=== PATIENT | male | born 1985 | race Caucasian/White ===

== ENCOUNTER 2016-07-21 17:23 | Emergency (ER) | payer OTHER ==
[2016-07-21] MEDS ORDERED: LIDOCAINE HCL 2% 20 ML VIAL ONE (18:03)
--- NOTE | 2016-07-21 18:37 | ER NURSING DOCUMENTATION ---
Nurse's Notes Name:Santino Gil Age:30 yrs Sex:Male :1985 Arrival Date:07/21/2016 Time:17:23 Bed1 Private MD:Anjelica Tellez Diagnosis:Lip Laceration Presentation: 07/21 17:33 Presenting complaint: Patient states: laceration above lip 30 minutes ago. Transition cb of care: Home. Complicating Factors: There are no complicating factors for this patient. Notified ED Physician of patient's arrival and CC Matthew Sarkar notified. 17:33 Method Of Arrival: Private Vehicle cb 17:33 Acuity: SY 4 cb Triage Assessment: 17:38 General: Appears in no apparent distress, well groomed, Behavior is cooperative. Pain: cb Complains of pain in philtrum Pain currently is 1 out of 10 on a pain scale. EENT: Denies loose teeth. Neuro: Level of Consciousness is awake, alert, Oriented to person, place, time. Cardiovascular: Pulses are 2+ in left radial artery. Respiratory: Airway is patent Trachea midline Respiratory effort is even, unlabored, Respiratory pattern is regular, symmetrical. GI: Reports tolerance of fluids, tolerance of food. : No deficits noted. Derm: Skin laceration. Musculoskeletal: No deficits noted. Injury Description: Laceration sustained to philtrum is clean, 0.5 to 2.5 cm long, was sustained less than 30 minutes ago. is bleeding a small amount. Historical: - Allergies: Neosporin ([id number]); - Home Meds: 1. clonazepam 0.5 mg oral tab 1 tab 2 times per day (Last dose: 07/21/2016 17:20) 2. Zyrtec 10 mg oral tab 1 tab once daily 3. Omeprazole Oral 4. buspirone 15 mg oral tab 1 tab 2 times per day TID 5. Promethazine Oral - PMHx: GERD; eosinophilic esophagitis ; dysphagia; nausea ; - PSHx: None; - Tetanus: < 10 years. - Ebola Screening: : Patient negative for fever greater than or equal to 101.5 degrees Fahrenheit, and additional compatible Ebola Virus Disease symptoms. Patient denies exposure to infectious person. Patient denies travel to an Ebola-affected area in the 21 days before illness onset. No symptoms or risks identified at this time. . - Immunization history: Flu Vaccine < 1 year. - Social history: Smoking status: Patient states was never smoker of tobacco. Screenin:42 Infectious Disease Risk None. Abuse screen: Denies threats or abuse. Denies injuries cb from another. Nutritional screening: No deficits noted. Assessment: 17:42 Injury Description: Laceration sustained to philtrum is clean, was sustained less than cb 30 minutes ago. is bleeding a small amount. Vital Signs: 17:36 BP 144 / 85; Pulse 81; Resp 20; Temp 99.4; Pulse Ox 97% on R/A; Weight 85.28 kg; Height cb 5 ft. 9 in. (175.26 cm); Pain 1/10; 17:36 Body Mass Index 27.76 (85.28 kg, 175.26 cm) cb ED Course: 17:24 Patient arrived in ED. ds 17:25 Anjelica Tellez DO is Private Physician. ds 17:33 Stephanie Laird, RN is Primary Nurse. cb 17:34 Triage completed. cb 17:42 Valuables Remains with patient Patient has correct armband on for positive cb identification. Bed in low position. Call light in reach. Pulse Ox - RN Monitoring Only NIBP On - RN Monitoring Only. 17:43 Wound care to laceration located on philtrum was Irrigation Normal Saline Patient cb tolerated well. 17:45 Rex Castro MD is Attending Physician. dustin Administered Medications: 17:52 Drug: Lidocaine (2 %) 10 ml; Route: Infiltration; cb Outcome: 18:19 Discharge ordered by . dustin 18:25 Discharged to home ambulatory, with family. cb 18:25 Condition: good 18:25 Discharge Assessment: Patient awake, alert and oriented x 3. No cognitive and/or functional deficits noted. Patient verbalized understanding of disposition instructions. 18:25 Discharge instructions given to patient, Instructed on discharge instructions, Demonstrated understanding of instructions. 18:36 Patient left the ED. cb 07/22 10:57 Discharge F/U Call: Spoke with: patient. Are you having any pain? no. Overall Care on lp a scale of 1-10 with 10 being the best care, you rate our care as: the rating of 10. What is the one thing you feel we could do to improve? Patient's answer: Much better Signatures: Stephanie Laird, RN RN Marina Dunbar RN RN lp Julianne, Veronica, Reg Reg ds Rex Castro MD MD jm
--- NOTE | 2016-07-21 18:37 | ER PHYSICIAN DOCUMENTATION ---
Physician Documentation [facility] Name:Santino Gil Age:30 yrs Sex:Male :1985 Arrival Date:07/21/2016 Time:17:23 Bed1 Private MD:Anjelica Tellez ED, John Disposition: 07/21/16 18:19 Discharged to Home/Self Care. Impression: Lip Laceration. - Condition is Good. - Discharge Instructions: LACERATION, Lip/Mouth. - Medical Reconciliation form form. - Follow up: Emergency Department; When: 5 days; Reason: Staple/Suture removal. - Problem is new. - Symptoms have improved. HPI: 07/21 18:26 This 30 yrs old Male presents to ER via Private Vehicle with complaints of jm Laceration To Lip. 18:26 The patient presents with upper lip lac. The problem is located in the philtrum. Onset: jm The symptom(s)/episode began/occurred today. Duration: The symptoms are chronic. The patient has not experienced similar symptoms in the past. Pt was pulling a stuck 5 gallon bucket from his car and the handle broke off and hit his upper lip. . Historical: - Allergies: Neosporin ([id number]); - Home Meds: 1. clonazepam 0.5 mg oral tab 1 tab 2 times per day (Last dose: 07/21/2016 17:20) 2. Zyrtec 10 mg oral tab 1 tab once daily 3. Omeprazole Oral 4. buspirone 15 mg oral tab 1 tab 2 times per day TID 5. Promethazine Oral - PMHx: GERD; eosinophilic esophagitis ; dysphagia; nausea ; - PSHx: None; - Tetanus: < 10 years. - Ebola Screening: : Patient negative for fever greater than or equal to 101.5 degrees Fahrenheit, and additional compatible Ebola Virus Disease symptoms. Patient denies exposure to infectious person. Patient denies travel to an Ebola-affected area in the 21 days before illness onset. No symptoms or risks identified at this time. . - Immunization history: Flu Vaccine < 1 year. - Social history: Smoking status: Patient states was never smoker of tobacco. ROS: 18:27 Constitutional: Negative for fever. jm 18:27 ENT: Positive for injury or acute deformity, Negative for dental pain. 18:27 Skin: Positive for laceration(s). Exam: 18:28 Constitutional: The patient appears alert, awake. dustin 18:28 ENT: Mouth: Lips: lacerated, approximately 2 cm(s), upper vermilion border, Dental exam: normal. 18:28 Skin: injury, laceration(s), the wound is approximately 2 cm(s), with a depth of 1 cm(s), of the philtrum, that can be described as jagged, through and through, without bleeding. Vital Signs: 17:36 BP 144 / 85; Pulse 81; Resp 20; Temp 99.4; Pulse Ox 97% on R/A; Weight 85.28 kg; Height cb 5 ft. 9 in. (175.26 cm); Pain 1/10; 17:36 Body Mass Index 27.76 (85.28 kg, 175.26 cm) cb Laceration: 18:29 Wound Repair of 2cm ( 0.8in ) subcutaneous laceration to upper vermilion border. jm Irregularly shaped.. stellate. Distal neuro/vascular/tendon intact. Anesthesia: Wound infiltrated with 5 mls of 2% lidocaine. Wound prep: Wound irrigation by nurse. Skin closed with 6 6-0 Prolene using Interrupted sutures. Dressed with Open to air. Patient tolerated well. MDM: 17:46 Patient medically screened. dustin 18:30 Differential diagnosis: vermilion boarder lac. Data reviewed: vital signs, nurses jm notes, and as a result, I will discharge patient. Counseling: I had a detailed discussion with the patient and/or guardian regarding: the historical points, exam findings, and any diagnostic results supporting the discharge/admit diagnosis, the need for outpatient follow up. Dispensed Medications: 17:52 Drug: Lidocaine (2 %) 10 ml; Route: Infiltration; cb Signatures: Stephanie Laird RN RN Rex Gaming MD MD jm
== END 2016-07-21 18:37 | disposition home or self-care (01) ==
LOC: ER 17:23
DX: S01.511A Laceration without foreign body of lip, initial encounter (principal); W22.8XXA Striking against or struck by other objects, initial encounter; Y92.89 Other specified places as the place of occurrence of the external cause
CPT/HCPCS: 12011; 99283

== ENCOUNTER 2016-07-26 13:10 | Emergency (ER) | payer OTHER ==
--- NOTE | 2016-07-26 13:29 | ER NURSING DOCUMENTATION ---
Nurse's Notes [facility] Name:Santino Gil Age:30 yrs Sex:Male :1985 Arrival Date:07/26/2016 Time:13:10 Bed2 Private MD:Anjelica Tellez Diagnosis:Suture Removal Presentation: 07/26 13:16 Presenting complaint: Patient states: suture removal. Transition of care: patient was nf not received from another setting of care. 13:16 Acuity: SY 5 nf 13:16 Method Of Arrival: Walk In Triage Assessment: 13:16 General: Appears in no apparent distress, well nourished, well groomed, Behavior is pleasant. Pain: Denies pain. Historical: - Allergies: Neosporin ([id number]); - PMHx: GERD; eosinophilic esophagitis ; dysphagia; nausea ; Lip Laceration (July 21, 2016); - PSHx: NONE; - Tetanus: < 10 years. - Ebola Screening: : No symptoms or risks identified at this time. . - Immunization history: Unable to Obtain. - Social history: Smoking status: unknown if patient ever smoked tobacco. Screenin:16 Infectious Disease Risk None. Abuse screen: Denies threats or abuse. Nutritional nf screening: No deficits noted. Assessment: 13:16 See Triage Assessment done by same RN. nf Vital Signs: 13:16 Temp 98.2; nf ED Course: 13:12 Patient arrived in ED. arc 13:12 Anjelica Tellez DO is Private Physician. arc 13:16 Cate Becerra, RN is Primary Nurse. nf 13:16 Valuables Remains with patient. Door closed. Noise minimized. Lights dimmed. Moved to private room. Verbal reassurance given. Pillow given. 13:17 Triage completed. nf 13:20 Removed sutures from upper lip Suture site is well healed Patient tolerated well. nf 13:28 Anjelica Tellez DO is Referral Physician. nf 13:28 Rex Castro MD is Attending Physician. nf Administered Medications: No medications were administered Outcome: 13:27 Discharged to home ambulatory, with family. nf 13:27 Condition: improved 13:27 Discharge instructions given to patient, family, Instructed on discharge instructions, follow up and referral plans. wound care, Demonstrated understanding of instructions. 13:27 No charge visit due to suture removal. 13:28 Discharge ordered by MD. sheffield 13:28 Patient left the ED. nf 07/27 13:58 Discharge F/U Call: Unable to reach: no answer iglesia Signatures: Leigh Dempsey RN RN Cate Vieyra RN RN Jenifer Gaspar, Reg Reg arc
== END 2016-07-26 13:28 | disposition home or self-care (01) ==
LOC: ER 13:10
DX: Z48.02 Encounter for removal of sutures (principal); S01.511D Laceration without foreign body of lip, subsequent encounter